=== PATIENT | male | born 1945 | race Caucasian/White ===

== ENCOUNTER → 2017-04-28 | Outpatient (CLI) | payer BC ==
[~2017-04-28] MED LIST: PRDFOPS OTL
--- NOTE | 2017-04-28 11:45 | DIAGNOSTIC IMAGING REPORT ---
CHEST 2 VIEWS ROUTINE HISTORY: 71 years-old Male J45.909 Acute asthmatic [id number] acute cough for one month. COMPARISON: Chest radiograph 12/06/2014 TECHNIQUE: Frontal and lateral views of the chest FINDINGS: Cardiac silhouette is within normal limits. No pneumothorax or large pleural effusion. Chronic blunting of the costophrenic angles redemonstrated with linear subsegmental left basilar opacity suggesting atelectasis and/or scarring. Significant sigmoidal scoliosis of the thoracolumbar spine redemonstrated. The bones appear grossly intact. IMPRESSION: 1. Subsegmental left basilar atelectasis and/or scarring without acute cardiopulmonary process. 2. Thoracolumbar sigmoidal scoliosis. The above report was generated using voice recognition software. It may contain grammatical, syntax or spelling errors. Electronically signed by: Harshad Rg M.D. 04/28/2017 11:44 AM Dictated Date/Time: 04/28/2017 11:42 AM
== END | disposition home or self-care (01) ==
LOC: C.RAD1850 11:34
PROVIDERS: ATTEND Physician Assistant Medical
DX: J45.909 Unspecified asthma, uncomplicated (principal); M41.85 Other forms of scoliosis, thoracolumbar region

== ENCOUNTER → 2017-06-28 | Outpatient (CLI) | payer BC ==
--- NOTE | 2017-06-28 12:43 | DIAGNOSTIC IMAGING REPORT ---
ABDOMEN LIMITED (US) HISTORY: 71 years-old Male ELEVATED LIVER ENZYMES elevated liver function tests COMPARISON: None available TECHNIQUE: Multiple real-time sonographic images of the abdominal right upper quadrant were obtained assessing grayscale appearance and color flow FINDINGS: Pancreas is obscured by bowel gas. There is increased echogenicity of the hepatic parenchyma measuring up to 14 cm in length. No intrahepatic biliary ductal dilation identified. Circumscribed hypoechoic 1.2 cm lesion of the right hepatic lobe suggests cyst. No suspicious mass lesions of the liver identified. The right kidney measures 11.0 cm in length and demonstrates no hydronephrosis. Nonobstructing calculus of the superior pole measures 2 mm. Gallbladder is unremarkable without shadowing cholelithiasis, gallbladder wall thickening or pericholecystic fluid collections. The common bile duct is normal, 0.5 cm. IMPRESSION: 1. No sonographic evidence of cholelithiasis or acute cholecystitis. 2. Mildly increased echogenicity of the liver suggests fatty infiltration. 3. No biliary ductal dilation. 4. Nonobstructing 2 mm calculus of the superior pole right kidney. The above report was generated using voice recognition software. It may contain grammatical, syntax or spelling errors. Electronically signed by: Harshad Rg M.D. 06/28/2017 12:42 PM Dictated Date/Time: 06/28/2017 12:39 PM
== END | disposition home or self-care (01) ==
LOC: C.ULTR 11:56
PROVIDERS: ATTEND Internal Medicine
DX: R79.89 Other specified abnormal findings of blood chemistry (principal); N20.0 Calculus of kidney

== ENCOUNTER → 2017-07-01 | Outpatient (CLI) | payer BC ==
--- NOTE | 2017-07-01 14:26 | DIAGNOSTIC IMAGING REPORT ---
(CHEST) THORAX WITHOUT CT DOSE: 327.69 mGy.cm CLINICAL HISTORY: 71 years-old Male with R05 [id number]. Acute cough TECHNIQUE: Multiaxial CT images of the chest were performed without contrast. A dose lowering technique was utilized adhering to the principles of ALARA. COMPARISON: Chest radiograph 04/28/2017. FINDINGS: 4 mm calcification of the inferior right thyroid lobe. There is no pathologic adenopathy about the chest identified. Heart is normal in size without pericardial effusion. Coronary arterial calcifications are noted. There is moderate atherosclerotic plaquing of the aorta with descending thoracic aortic tortuosity. No aneurysm identified. There are calcifications of the tracheobronchial tree. The lungs are hyperinflated with mild centrilobular emphysematous changes the lung apices. Mild paraseptal emphysematous changes also noted. There is no pneumothorax or pleural effusion. Mild bronchial wall thickening of the lung bases suggest bronchitis. Minimal tree-in-bud nodularity is also present within left lower lobe. Linear subsegmental pleural based opacities of the left greater than right lung bases suggest areas of atelectasis/scarring. Trace left pleural effusion is noted. 8 mm low attenuating lesion of the posterior right hepatic lobe suggests cyst as seen on image 54 series 2. Additionally, there is a 1.0 x 0.9 cm low attenuating lesion of the posterior right hepatic lobe on the same image which is indeterminate. No acute abnormality of the upper abdomen identified. Nonobstructing 6 mm calculus of the superior pole right kidney. There is asymmetric moderate atrophy of the left subscapularis musculature as seen on image 35 series 4. Bones are mildly demineralized. Sigmoid [lumbar scoliosis again seen. Multilevel endplate degenerative changes. IMPRESSION: 1. Hyperinflation with mild centrilobular and paraseptal emphysema. 2. Mild bilateral bronchial wall thickening suggests bronchitis. Groundglass and tree-in-bud nodularity of the left lower lobe likely reflects bronchiolitis/pneumonitis with trace left pleural effusion. Subsegmental atelectasis/scarring also noted within the left lung base. 3. Ill-defined low attenuating 1.0 cm lesion of the right hepatic lobe is nonspecific. Probable 8 mm hepatic cyst. 4. Nonobstructing 6 mm calculus of the superior pole right kidney. 5. Moderate atrophy of the left subscapularis musculature suggests chronic rotator cuff disease. Electronically signed by: Harshad Rg M.D. 07/01/2017 2:24 PM Dictated Date/Time: 07/01/2017 2:14 PM
== END | disposition home or self-care (01) ==
LOC: C.CTS 14:01
PROVIDERS: ATTEND Internal Medicine
DX: J43.2 Centrilobular emphysema (principal); J43.8 Other emphysema; R91.8 Other nonspecific abnormal finding of lung field; J90 Pleural effusion, not elsewhere classified; J98.11 Atelectasis; K76.9 Liver disease, unspecified; N20.0 Calculus of kidney; R93.7 Abnormal findings on diagnostic imaging of other parts of musculoskeletal system

== ENCOUNTER → 2017-08-13 | Outpatient (CLI) | payer BC ==
--- NOTE | 2017-08-13 09:00 | DIAGNOSTIC IMAGING REPORT ---
(CHEST) THORAX WITHOUT CLINICAL HISTORY: 72 years-old Male presenting with R05 [id number] Abnormal finding on imagingfollo. TECHNIQUE: Multidetector CT imaging of the chest was performed without the use of intravenous contrast. IV contrast: None. A dose lowering technique was used consistent with the principles of ALARA (as low as reasonably achievable). COMPARISON: 07/01/2017. CT DOSE (mGy.cm): The estimated cumulative dose is 289.65 mGycm. FINDINGS: [place] [employer] topogram: Hyperinflation. On soft tissue windows, calcification noted in the right lobe of the thyroid. There is No axillary, supraclavicular, or mediastinal lymphadenopathy. Evaluation of the cierra limited without intravenous contrast. Atherosclerosis of the aorta. Coronary artery calcification. Normal heart size. No pericardial or pleural effusion. Well-defined subcentimeter hypodensity medially in the right hepatic lobe likely hepatic cyst. Additional more ill-defined 1 cm lesion laterally in the right hepatic lobe (series 4 image 279), indeterminate. Nonobstructing right upper pole renal calculus. On lung windows, architectural distortion of the right lower lobe secondary to scoliotic curvature of the spine. Few bandlike opacities at the lung bases likely atelectasis or scarring. Mild bronchial wall thickening noted diffusely. Minimal subpleural reticulation in the lateral basal right lower lobe may be postinfectious/postinflammatory. Trace paraseptal emphysema in the azygos esophageal recess. No new infiltrate. Airways patent. On bone windows, degenerative changes and scoliotic curvature of the spine. Again demonstrated is mild atrophy of the left subscapularis muscle asymmetric to the right suggesting chronic injury. Exaggerated thoracic kyphosis. Anterior wedging deformities of T7 and T8 with partial osseous fusion indicating chronic change. Osteopenia. IMPRESSION: 1. No acute intrathoracic pathology. 2. Mild bronchial wall thickening could suggest chronic bronchitis. 3. Osteopenia with chronic compression deformities of T7 and T8. Electronically signed by: Kilo Liz M.D. 08/13/2017 8:59 AM Dictated Date/Time: 08/13/2017 8:49 AM
== END | disposition home or self-care (01) ==
LOC: C.CTS 08:34
PROVIDERS: ATTEND Internal Medicine
DX: J18.9 Pneumonia, unspecified organism (principal); R05 Cough; R93.8 Abnormal findings on diagnostic imaging of other specified body structures; M85.88 Other specified disorders of bone density and structure, other site

== ENCOUNTER → 2018-03-21 | Outpatient (CLI) | payer BC ==
[~2018-03-21] MED LIST changes: +ALBU18002 PO; +LOSA50TA54 PO; -PRDFOPS OTL
[2018-03-21 17:02] LABS: BLOOD UREA NITROGEN 16 mg/dl (7-18); CALCIUM 8.7 mg/dl (8.5-10.1); CARBON DIOXIDE 31 mmol/L (21-32); CREATININE 1.21 mg/dl (0.60-1.40); GLUCOSE 99 mg/dl (70-99); POTASSIUM 4.3 mmol/L (3.5-5.1); SODIUM 135 mmol/L (136-145)
== END | disposition home or self-care (01) ==
LOC: C.LAB 15:12
PROVIDERS: ATTEND Physician Assistant Medical
DX: I10 Essential (primary) hypertension (principal)

== ENCOUNTER 2018-04-14 17:02 | Emergency (ER) | payer BC ==
[~2018-04-14] VITALS: Ht 172.7 cm; Wt 74.2 kg
[2018-04-14 17:06] VITALS: TEMP 37.1; Ht 172.7 cm; Wt 74.2 kg
[2018-04-14 18:04] LABS: BASO % 0.3 %; BASO ABS # 0.02 K/uL (0-0.2); EOS % 1.2 %; EOS ABS # 0.09 K/uL (0-0.5); HEMATOCRIT 39.4 % (42-52); HEMOGLOBIN 13.6 g/dL (14.0-18.0); IG# 0.02 K/uL (0.00-0.02); LYMPH % 30.6 %; LYMPH ABS # 2.23 K/uL (1.2-3.4); MEAN CELL VOLUME 97.3 fL (80-100); MEAN CORPUSCULAR HEMOGLOBIN 33.6 pg (25-34); MEAN CORPUSCULAR HGB CONC 34.5 g/dl (32-36); MONO % 9.8 %; MONO ABS # 0.71 K/uL (0.11-0.59); NEUT % 57.8 %; NEUT ABS # 4.21 K/uL (1.4-6.5); PLATELET COUNT 187 K/uL (130-400); RED CELL DISTRIBUTION WIDTH CV 12.9 % (11.5-14.5); WHITE BLOOD COUNT 7.28 K/uL (4.8-10.8)
[2018-04-14 18:18] LABS: CALCIUM 8.3 mg/dl (8.5-10.1); CREATININE 0.89 mg/dl (0.60-1.40); POTASSIUM 3.8 mmol/L (3.5-5.1)
--- NOTE | 2018-04-14 19:10 | DIAGNOSTIC IMAGING REPORT ---
ULTRASOUND L VENOUS DOPP LOWER EXT UNILAT CLINICAL HISTORY: Left leg swelling COMPARISON STUDY: No previous studies for comparison. FINDINGS: Real-time and color flow Doppler imaging were performed. Flow was seen within the femoral, popliteal and calf veins with no intraluminal thrombus demonstrated. The saphenous vein is patent. Note is made of prominent left inguinal lymph nodes, the largest of which measures 38 x 7 x 18 mm. IMPRESSION: 1. No evidence of left lower extremity DVT 2. Nonspecific prominent left inguinal lymph nodes Electronically signed by: Johan Guzmán M.D. 04/14/2018 7:09 PM Dictated Date/Time: 04/14/2018 7:08 PM
[2018-04-14] MEDS ORDERED: DOXY100C76 PO (19:27)
[2018-04-14 19:50] VITALS: BP 152/76; PULSE 72; O2SAT 98
--- NOTE | 2018-04-14 21:03 | EMERGENCY ROOM VISIT NOTE ---
History Report prepared by Debra: Aspen Morales Under the Supervision of: Dr. Josh Love M.D. First contact with patient: 17:15 Chief Complaint: REFERRED BY DOCTOR Stated Complaint: DOC YINKA REFERRED;FEVER History of Present Illness The patient is a 72 year old male who presents to the Emergency Room with complaints of worsening swelling of his left leg starting 2 days ago. The patient states that his leg is slightly red. He states that he went to his PCP and was sent here. The patient complains of chills and feeling warm. He notes that he did not check his temperature, but believes that he has fever. The patient denies leg pain, chest pain, shortness of breath, recent falls, any recent bites, and a history of diabetes. He notes that he does live in an area with possible tick exposure, but denies finding any ticks on him recently. Source of History: patient Onset: 2 days ago Position: leg (left) Quality: other (swelling, redness) Timing: worsening Associated Symptoms: + chills, No chest pain, No SOB Note: The patient complains of feeling warm. The patient denies leg pain, recent falls , any recent bites, and a history of diabetes. Review of Systems See HPI for pertinent positives and negatives. A total of ten systems were reviewed and were otherwise negative. Past Medical & Surgical Medical Problems: (1) HTN (hypertension) Family History Heart disease Social History Smoking Status: Former Smoker Smokeless Tobacco Use: No Alcohol Use: occasionally Marital Status: single Housing Status: lives alone Occupation Status: employed Current/Historical Medications Scheduled Doxycycline Monohydrate (Monodox), 100 MG PO BID Losartan Potassium (Cozaar), 50 MG PO DAILY Scheduled PRN Albuterol Sulfate (Proair Respiclick), 2 PUFF PO Q6 PRN for SOB/Wheezing Allergies Coded Allergies: No Known Allergies (Unverified , 03/08/18) Physical Exam Vital Signs Date Time Temp Pulse Resp B/P (MAP) Pulse Ox O2 Delivery O2 Flow Rate FiO2 04/14/18 19:50 72 16 152/76 98 Room Air 04/14/18 18:23 88 16 166/98 98 Room Air 04/14/18 17:06 37.1 79 20 179/98 97 Room Air Physical Exam Physical Exam GENERAL: He is oriented to person, place, and time. He appears well-developed and well-nourished. He does not appear distressed. HENT: Exam performed. Head: Normocephalic and atraumatic. Right Ear: External ear normal. No mastoid tenderness. Left Ear: External ear normal. No mastoid tenderness. Mouth/Throat: The oropharynx is clear and moist. No trismus in the jaw. No dental abscesses or uvula swelling. No oropharyngeal exudate or tonsillar abscesses. EYES: Conjunctivae and EOM are normal. Pupils are equal, round, and reactive to light. Right eye exhibits no discharge. Left eye exhibits no discharge. No scleral icterus. NECK: Normal range of motion. Neck supple. No JVD present. No spinous process tenderness present. No carotid bruit present. No rigidity. No tracheal deviation and normal range of motion present. No Brudzinski's sign and no Kernig 's sign noted. CV: Normal rate, regular rhythm, normal heart sounds and intact distal pulses. There is no peripheral edema. Palpable radial pulses bue. PULM/CHEST: Effort normal and breath sounds normal. No respiratory distress. No stridor. He has no wheezes. He has no rales. Chest Wall: He exhibits no tenderness. ABD: The abdomen is soft. Bowel sounds are normal. He has no distension. No mass is present. There is no tenderness. There is no rebound, no guarding, no Vogel's sign and no tenderness at McBurney's point. Rovsig negative. MUSC/SKEL: Normal range of motion. There is no peripheral edema, tenderness or deformity. LYMPH: No cervical adenopathy. NEURO: He is alert and oriented to person, place, and time. He has normal strength. No cranial nerve deficit or sensory deficit. Coordination and gait normal. GCS eye subscore is 4. GCS verbal subscore is 5. GCS motor subscore is 6. Cerebellar tests wnl. SKIN: Skin is warm and dry. He is not diaphoretic. Mild erythema to the left lower calf. Not circumferential. No vesicles. No fluctuance or obvious abscess. No discharge or bleeding. Negative Nikolsky. Palpable DP and PD pulses in bilateral lower extremities. PSYCH: He has a normal mood and affect. Behavior is normal. Judgment and thought content normal. Medical Decision & Procedures ER Provider Diagnostic Interpretation: Radiology results as stated below per my review and radiologist interpretation: ULTRASOUND L VENOUS DOPP LOWER EXT UNILAT CLINICAL HISTORY: Left leg swelling COMPARISON STUDY: No previous studies for comparison. FINDINGS: Real-time and color flow Doppler imaging were performed. Flow was seen within the femoral, popliteal and calf veins with no intraluminal thrombus demonstrated. The saphenous vein is patent. Note is made of prominent left inguinal lymph nodes, the largest of which measures 38 x 7 x 18 mm. IMPRESSION: 1. No evidence of left lower extremity DVT 2. Nonspecific prominent left inguinal lymph nodes Electronically signed by: Johan Guzmán M.D. 04/14/2018 7:09 PM Dictated Date/Time: 04/14/2018 7:08 PM Laboratory Results 04/14/18 17:40 Red Blood Count 4.05, Mean Corpuscular Volume 97.3, Mean Corpuscular Hemoglobin 33.6, Mean Corpuscular Hemoglobin Concent 34.5, Mean Platelet Volume 9.0, Neutrophils (%) (Auto) 57.8, Lymphocytes (%) (Auto) 30.6, Monocytes (%) (Auto) 9.8, Eosinophils (%) (Auto) 1.2, Basophils (%) (Auto) 0.3, Neutrophils # (Auto) 4.21, Lymphocytes # (Auto) 2.23, Monocytes # (Auto) 0.71, Eosinophils # (Auto) 0.09, Basophils # (Auto) 0.02 04/14/18 17:40 Test 04/14/18 17:40 White Blood Count 7.28 K/uL (4.8-10.8) Red Blood Count 4.05 M/uL (4.7-6.1) Hemoglobin 13.6 g/dL (14.0-18.0) Hematocrit 39.4 % (42-52) Mean Corpuscular Volume 97.3 fL (80-100) Mean Corpuscular Hemoglobin 33.6 pg (25-34) Mean Corpuscular Hemoglobin Concent 34.5 g/dl (32-36) Platelet Count 187 K/uL (130-400) Mean Platelet Volume 9.0 fL (7.4-10.4) Neutrophils (%) (Auto) 57.8 % Lymphocytes (%) (Auto) 30.6 % Monocytes (%) (Auto) 9.8 % Eosinophils (%) (Auto) 1.2 % Basophils (%) (Auto) 0.3 % Neutrophils # (Auto) 4.21 K/uL (1.4-6.5) Lymphocytes # (Auto) 2.23 K/uL (1.2-3.4) Monocytes # (Auto) 0.71 K/uL (0.11-0.59) Eosinophils # (Auto) 0.09 K/uL (0-0.5) Basophils # (Auto) 0.02 K/uL (0-0.2) RDW Standard Deviation 46.0 fL (36.4-46.3) RDW Coefficient of Variation 12.9 % (11.5-14.5) Immature Granulocyte % (Auto) 0.3 % Immature Granulocyte # (Auto) 0.02 K/uL (0.00-0.02) Anion Gap 10.0 mmol/L (3-11) Est Creatinine Clear Calc Drug Dose 72.6 ml/min Estimated GFR () 99.0 Estimated GFR (Non- 85.4 BUN/Creatinine Ratio 15.7 (10-20) Lactic Acid Level 1.1 mmol/L (0.4-2.0) Calcium Level 8.3 mg/dl (8.5-10.1) Lyme Disease IgG Antibody NEG (NEG) Lyme Disease IgM Antibody NEG (NEG) Laboratory results reviewed by nm ED Course 1718: The patient was evaluated in room B3A. A complete history and physical exam was performed. 1927: Vital signs were stable. Labs and imaging were within normal limits. The patient will be discharged with antibiotics for cellulitis. DISCHARGE - Plan of care discussed with patient and questions answered. The patient was given both verbal and printed discharge instructions. The patient verbalized understanding and ability to comply. The patient is to seek outpatient follow up as noted in the discharge instructions. The patient verbalized understanding and ability to comply. The patient is discharged in stable condition. The patient was instructed to return for worsening symptoms. Medical Decision Vital signs were stable. Labs and imaging were within normal limits. The patient will be discharged with antibiotics for cellulitis. DISCHARGE - Plan of care discussed with patient and questions answered. The patient was given both verbal and printed discharge instructions. The patient verbalized understanding and ability to comply. The patient is to seek outpatient follow up as noted in the discharge instructions. The patient verbalized understanding and ability to comply. The patient is discharged in stable condition. The patient was instructed to return for worsening symptoms. Medication Reconcilliation Current Medication List: was personally reviewed by me Blood Pressure Screening Patient's blood pressure: Elevated blood pressure Blood pressure disposition: Elevated BP felt to be situational Impression Primary Impression: Cellulitis Scribe Attestation The scribe's documentation has been prepared under my direction and personally reviewed by me in its entirety. I confirm that the note above accurately reflects all work, treatment, procedures, and medical decision making performed by me. The chart was completed utilizing [employer] Speech voice recognition software. Grammatical errors, random word insertions, pronoun errors, and incomplete sentences are an occasional consequence of this system due to software limitations, ambient noise, and hardware issues. Any formal questions or concerns about the content, text, or information contained within the body of this dictation should be directly addressed to the physician for clarification. Departure Information Dispostion Home / Self-Care Prescriptions Doxycycline Monohydrate (Monodox) 100 Mg Cap 100 MG PO BID for 10 Days, #20 CAP Prov: Josh Love M.D. 04/14/18 Referrals Gucci Bey M.D. (PCP) Forms HOME CARE DOCUMENTATION FORM, IMPORTANT VISIT INFORMATION, WORK / SCHOOL INSTRUCTIONS Patient Instructions My [facility] Additional Instructions Return to the emergency department if the redness on her lower extremity increases or you develop fever greater 100.4. Also return to emergency department if you develop drainage from your rash. Problem Qualifiers Primary Impression: Cellulitis Site of cellulitis: extremity Site of cellulitis of extremity: lower extremity Laterality: unspecified laterality Qualified Codes: L03.119 - Cellulitis of unspecified part of limb
== END 2018-04-14 20:06 | disposition home or self-care (01) ==
LOC: C.EDB 17:05
DX: L03.116 Cellulitis of left lower limb (principal); I10 Essential (primary) hypertension; Z87.891 Personal history of nicotine dependence; Z79.899 Other long term (current) drug therapy

== ENCOUNTER 2025-03-19 16:49 | Inpatient (IN) ==
--- NOTE | 2025-03-19 17:03 | Emergency Department Note ---
Impression & Plan Syncope, Allergic reaction, Hypoxia ED Provider Note NAME: ARSALAN LINDSAY AGE: 79 SEX: M : 1945 ARRIVES VIA: Ambulance INFORMANT: Patient, ED PROVIDER(S): Jeramie Judd DO CHIEF COMPLAINT: Syncope HPI: The patient is a 79-year-old male who presented to the emergency department by ambulance after a syncopal episode. The patient states he was doing yard work outside. He was riding on his riding mower. Patient got close to his neighbors yard who has honeybees. He started to become attacked by the honeybee. He was stung approximately 12 times. He got back to his riding mower and states he started having blurring of his vision and feeling as though he was going to pass out. The neighbors called 911 as a saw the patient passed out. His riding tractor did stop once it struck a structure but it was not very fast and patient was not hurt. 911 arrived and the patient was brought to the emergency department. He did receive a DuoNeb treatment as well as Solu-Medrol. The patient denies having any chest pain or difficulty breathing at this time. He denies having any nausea or vomiting. He denies having any headache or chest pain. ROS: See above HPI for pertinent positives & negatives. A total of 10 systems reviewed and were otherwise negative. PAST MEDICAL HISTORY: See Below PAST SURGICAL HISTORY: See Below FAMILY HISTORY: See Below SOCIAL HISTORY: See Below HOME MEDICATIONS: See Below ALLERGIES: See Below VITALS: See Below PHYSICAL EXAMINATION: GENERAL: Patient is awake alert in no acute distress patient is resting comfortably and showing no signs of anxiety EYES: The conjunctivae are clear. The pupils are round and reactive. EARS, NOSE, MOUTH AND THROAT: The nose is without any evidence of any deformity. NECK: The neck is nontender and supple. RESPIRATORY: Scattered wheezing was noted throughout. There is no tachypnea or conversational dyspnea. CARDIOVASCULAR: Regular rate and rhythm noted there no murmurs rubs or gallops normal S1 normal S2. GASTROINTESTINAL: The abdomen is soft. Abdomen is nontender. MUSCULOSKELETAL/EXTREMITIES: There is no evidence of gross deformity full range of motion is noted in the hips and shoulders. SKIN: Multiple bee stings sacs were noted on the forehead on the scalp as well as above the left eye. They were removed using tape. NEUROLOGIC: Patient is awake alert and oriented x3 strength is symmetric patellar reflexes are 2+ bilaterally MEDICAL DECISION MAKING: The patient is a 79-year-old male who presented to the emergency department for an evaluation after having a syncopal episode. The patient was stung by multiple bees and then had a syncopal episode. He was noted to have wheezing prior to arrival. He was treated with steroids as well as bronchodilators prior to arrival. He was treated with Benadryl in the emergency department as well as another bronchodilator nebulizer. He was reevaluated multiple times. The patient had very little complaints. He had no signs of overt anaphylaxis but continued to have hypoxia. For this reason I discussed his condition with the on-call [facility] hospitalist. They have agreed to evaluate the patient in the emergency department. Triage Nursing notes reviewed. Prior medical records reviewed Vital Signs: reviewed and remarkable for no significant abnormalities Differential diagnosis: Vasovagal event, dehydration, infection, hypoglycemia, electrolyte abnormalities, cardiac sources, intracerebral event, pulmonary embolism, seizure, toxicologic, neurologic, as well as other pathologies. ER treatment provided: See below Diagnostics interpreted by me: ECG: EKG was obtained in the emergency department. Interpretation is sinus rhythm at 118 bpm. No PVCs were noted. Nonspecific abnormalities were noted in the high lateral leads. This was compared to a tracing from September 06, 1994. Changes have occurred which are likely age-related. Cardiac Monitoring: An order was placed for continuous cardiac monitoring. The monitor shows a rate of 100 bpm with sinus rhythm. Laboratory studies: As stated above and show below. Imaging studies: See below. Radiographic imaging was reviewed by myself Consultation(s): I discussed this case with Dr. Chowdary who is on-call for the [facility] hospitalist group. Past Med/Surg History Problem List (Updated 03/19/25 @ 21:36 by Jo Paul PA-C) Elevated troponin Hypoxia (Acute) Allergic reaction (Acute) Syncope (Acute) Elevated PSA, between 10 and less than 20 ng/ml COPD (chronic obstructive pulmonary disease) Osteoporosis Decreased bone mass Former heavy tobacco smoker HTN (hypertension) Abdominal pain Impaired fasting glucose Bronchitis Encounter for health maintenance examination in adult S/P cataract extraction Rheumatic heart disease Hyperlipidemia Bilateral inguinal hernia Anemia Medical History Screening for colon cancer Rheumatic fever Intestinal adhesions with obstruction Surgical History S/P inguinal hernia repair Family History Mother Stroke Brother Stroke Denies family history of Sudden Ovarian cancer Prostate cancer Myocardial infarction Breast cancer Colorectal cancer Social History Smoking Status: Former smoker Tobacco Type: Cigarettes Age Started Using Tobacco: 14; Age Quit Using Tobacco: 62; packs per day: 0.5; Second Hand Exposure: No; Do You Dip or Chew Tobacco: No; Hx Alcohol Use: Yes Alcohol type: beer and wine Alcohol Intake Frequency: 4 or More x per/Week Alcohol Intake Frequency Comment: approx 3-4 drinks per day Hx Substance Use: No Preferred Language: [place] Visual Impairment: No Limitations Hearing Ability: Normal Beliefs That Will Affect Care: None marital status: Current Living Situation: Spouse current occupational status: retired 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 200 mcg-umeclid 1 inh inhalation Q24H #60 ea 11/02/24 62.5 mcg-vilant 25 mcg inhalat.powder (Trelegy Ellipta) alendronate 70 mg tablet (Fosamax) 70 mg PO .q7day 28 days #12 tabs 12/26/24 losartan 50 mg tablet 50 mg PO DAILY #90 tabs 01/16/25 Results & Data (ED) Vital Signs Vital Signs - 24 hr 03/19/25 17:06 03/19/25 17:06 03/19/25 17:06 Temperature 36.8 C Temperature Source Oral Pulse Rate 117 H Pulse Rate [Apical] 117 H Pulse Rate from SpO2 Sensor Respiratory Rate 23 23 Blood Pressure Blood Pressure [Right Arm] 104/73 Blood Pressure Mean Blood Pressure Mean [Right Arm] 83 Pulse Oximetry 87 L 95 95 Oxygen Delivery Method Room Air Nasal Cannula Nasal Cannula Oxygen Flow Rate 0 2 2 Sepsis Recent Fever Within 48 Hours Sepsis New/Unexplained Change in Mental Status Sepsis Action Taken by Nursing Oxygen Flow Rate - Titration 2 Pulse Oximetry Post Tiitration 95 03/19/25 17:10 03/19/25 17:10 03/19/25 17:12 Temperature 36.8 C Temperature Source Oral Pulse Rate 117 H 118 H Pulse Rate [Apical] Pulse Rate from SpO2 Sensor Respiratory Rate 23 Blood Pressure 104/73 Blood Pressure [Right Arm] Blood Pressure Mean 83 Blood Pressure Mean [Right Arm] Pulse Oximetry 95 Oxygen Delivery Method Nasal Cannula Nasal Cannula Oxygen Flow Rate 2 2 Sepsis Recent Fever Within 48 Hours No Sepsis New/Unexplained Change in Mental Status N/A Sepsis Action Taken by Nursing Physician Notified Oxygen Flow Rate - Titration Pulse Oximetry Post Tiitration 03/19/25 21:04 03/19/25 21:09 Temperature Temperature Source Pulse Rate 91 H 100 H Pulse Rate [Apical] Pulse Rate from SpO2 Sensor 99 H Respiratory Rate 21 Blood Pressure 117/77 Blood Pressure [Right Arm] Blood Pressure Mean 90 Blood Pressure Mean [Right Arm] Pulse Oximetry 92 Oxygen Delivery Method Room Air Oxygen Flow Rate Sepsis Recent Fever Within 48 Hours Sepsis New/Unexplained Change in Mental Status Sepsis Action Taken by Nursing Oxygen Flow Rate - Titration Pulse Oximetry Post Tiitration Home Medications Current Medication List: was personally reviewed by me Laboratory Data Attestation: I reviewed the patient's lab results. 03/19/25 17:08 03/19/25 17:08 Lab Results 03/19/25 03/19/25 03/19/25 Range/Units 17:08 18:52 21:08 WBC 11.49 H (4.8-10.8) K/ul RBC 4.38 L (4.70-6.10) M/uL Hgb 14.8 (14.0-18.0) g/dl Hct 42.6 (42.0-52.0) % MCV 97.3 (80.0-100.0) fL MCH 33.8 (25.0-34.0) pg MCHC 34.7 (32.0-36.0) g/dL RDW Std Deviation 42.5 (36.4-46.3) fL RDW Coeff of Ana Luisa 11.9 (11.5-14.5) % Plt Count 244 (130-400) K/uL MPV 8.5 L (9.4-12.4) fL Immature Gran % (Auto) 0.3 % Neut % (Auto) 71.8 % Lymph % (Auto) 22.3 % Stevens % (Auto) 5.3 % Eos % (Auto) 0.2 % Baso % (Auto) 0.1 % Neut # (Auto) 8.26 H (1.40-6.50) K/uL Lymph # (Auto) 2.56 (1.20-3.40) K/uL Stevens # (Auto) 0.61 H (0.11-0.59) K/uL Eos # (Auto) 0.02 (0.00-0.50) K/uL Baso # (Auto) 0.01 (0.00-0.20) K/uL Immature Gran # (Auto) 0.03 (0.01-0.20) K/uL Sodium 138 (136-145) mmol/L Potassium 4.2 (3.5-5.1) mmol/L Chloride 101 (98-107) mmol/L Carbon Dioxide 25 (21-32) mmol/L Anion Gap 12 H (3-11) BUN 20 (6-23) mg/dl Creatinine 1.35 (0.6-1.4) mg/dl Est Cr Clr Drug Dosing 45.8 ml/min eGFR 53.41 BUN/Creatinine Ratio 14.8 (10-20) Glucose 229 H (70-99(Fasting)) mg/dl POC Glucose 149 H (70-99) mg/dl Calcium 10.0 (8.6-10.3) mg/dl Magnesium 2.0 (1.7-2.4) mg/dl Total Bilirubin 1.0 (0.2-1.0) mg/dl AST 33 (13-39) U/L ALT 20 (7-52) U/L Alkaline Phosphatase 79 (34-104) U/L Troponin I High Sens 21.3 H 26.8 H (0-20) pg/ml Total Protein 7.4 (6.0-8.3) gm/dl Albumin 3.8 (3.4-5.0) gm/dl Globulin 3.6 (2.5-4.0) gm/dl Albumin/Globulin Ratio 1.1 (0.9-2) Administered Medications Discontinued Medications Albuterol (Albut/Ipratrop 3mg/0.5mg Neb 3 Ml Vial) 3 ml NEB NOW STA; Protocol Stop: 03/19/25 17:02 Last Admin: 03/19/25 17:21 Dose: 3 ml Documented By: MAIKEL Diphenhydramine HCl (Diphenhydramine 50 Mg/Ml Vial) 25 mg IV NOW STA Stop: 03/19/25 17:02 Last Admin: 03/19/25 17:23 Dose: 25 mg Documented By: MAIKEL Sodium Chloride (Nss) 500 mls @ 999 mls/hr IV .Q31M ONE Stop: 03/19/25 17:31 Last Infusion: 03/19/25 18:28 Dose: Infused Documented By: Admin: 03/19/25 17:23 Dose: 999 mls/hr Documented By: MAIKEL Imaging Data Attestation: I personally reviewed and interpreted this imaging study as follows: My Impression: 1 view chest x-ray was obtained in the emergency department. My interpretation is no free air or definite infiltrate, final report below. Radiologist's Impression: Chest X-Ray 03/19/25 17:01 EXAM: XR chest 1V portable CLINICAL HISTORY: Syncope TECHNIQUE: An X-ray image of the chest is obtained in AP projection. COMPARISON: Compared to the previous study dated 12/28/2022 and 02/18/2021 FINDINGS: Pulmonary Parenchyma: Right para hilar opacity, possibly positional due to scoliotic deformity. Still noted right parahilar and left basal atelactasis/scar No pulmonary nodules are identified. blunting of the right costophrenic angle Heart and Mediastinum: Heart size and shape are normal. No mediastinal widening or masses. No hilar or mediastinal lymphadenopathy. Tortuous aorta Bony Thorax: Bony thorax appears intact without fractures or deformities. Soft Tissues: Soft tissues overlying the chest wall are unremarkable. IMPRESSION: 1. No acute cardiopulmonary abnormalities are identified, stable 2. Right para hilar opacity, possibly positional due to scoliotic deformity. stable 3. Still noted right parahilar and left basal atelactasis/scar, stable Electronically signed by Ger Koroma 03-19-2025 6:23 PM Discharge Plan Visit Data Chief Complaint: Allergic Reaction Stated Complaint: SYNCOPE ED Provider: Jeramie Judd Discharge Problem: Syncope, Allergic reaction, Hypoxia Patient Disposition: Being Evaluated by Hospitalist Condition: Fair Forms Stand Alone Forms: My [facility] Prescriptions Prescriptions: No Action amlodipine 5 mg tablet 5 mg PO DAILY Qty: 90 3RF Trelegy Ellipta 200-62.5-25 mcg blister with device 1 inh inhalation Q24H Qty: 60 3RF alendronate [Fosamax] 70 mg tablet 70 mg PO .q7day 28 Days Qty: 12 4RF Rx Instructions: Take 1 tablet, every 7 days with 8 oz plain water only. Wait 45 minutes before eating/drinking anything else. Take this med every Wednesday. losartan 50 mg tablet 50 mg PO DAILY Qty: 90 3RF Referrals Referrals: Zev Koroma DO [Primary Care Provider] -
[2025-03-19] MEDS: ALBUT/IPRATROP 3MG/0.5MG NEB 3 ML VIAL NEB STA (17:21)
[2025-03-19] MEDS: SODIUM CHLORIDE 0.9% 500 ML IV ONE (17:23)
[2025-03-19] MEDS: diphenhydrAMINE 50 MG/ML VIAL IV STA (17:23)
[2025-03-19 17:24] LABS: Hematocrit (blood only) 42.6 % (42.0-52.0); Hemoglobin 14.8 g/dl (14.0-18.0); Immature Granulocytes # (auto) 0.03 K/uL (0.01-0.20); Immature Granulocytes % (auto) 0.3 %; Mean Corpuscular Hemoglobin 33.8 pg (25.0-34.0); Mean Corpuscular Volume 97.3 fL (80.0-100.0); Platelet Count 244 K/uL (130-400); RDW Standard Deviation 42.5 fL (36.4-46.3); Red Blood Count 4.38 M/uL (4.70-6.10); White Blood Count 11.49 K/ul (4.8-10.8)
[2025-03-19 17:49] LABS: Alanine Aminotransferase 20.0 U/L (7-52); Albumin Globulin Ratio 1.1 (0.9-2); Alkaline Phosphatase 79.0 U/L (34-104); Anion Gap 12.0 (3-11); Bilirubin,Total 1.0 mg/dl (0.2-1.0); Blood Urea Nitrogen 20.0 mg/dl (6-23); Calcium 10.0 mg/dl (8.6-10.3); Carbon Dioxide 25.0 mmol/L (21-32); Chloride 101.0 mmol/L (98-107); Creatinine Clr Calc Pharmacy 45.8 ml/min; Globulin 3.6 gm/dl (2.5-4.0); Glucose 229.0 mg/dl (70-99(Fasting)); Magnesium 2.0 mg/dl (1.7-2.4); Potassium 4.2 mmol/L (3.5-5.1); Sodium 138.0 mmol/L (136-145); Total Protein 7.4 gm/dl (6.0-8.3)
--- NOTE | 2025-03-19 18:23 | XRay Report ---
EXAM: XR chest 1V portable CLINICAL HISTORY: Syncope TECHNIQUE: An X-ray image of the chest is obtained in AP projection. COMPARISON: Compared to the previous study dated 12/28/2022 and 02/18/2021 FINDINGS: Pulmonary Parenchyma: Right para hilar opacity, possibly positional due to scoliotic deformity. Still noted right parahilar and left basal atelactasis/scar No pulmonary nodules are identified. blunting of the right costophrenic angle Heart and Mediastinum: Heart size and shape are normal. No mediastinal widening or masses. No hilar or mediastinal lymphadenopathy. Tortuous aorta Bony Thorax: Bony thorax appears intact without fractures or deformities. Soft Tissues: Soft tissues overlying the chest wall are unremarkable. IMPRESSION: 1. No acute cardiopulmonary abnormalities are identified, stable 2. Right para hilar opacity, possibly positional due to scoliotic deformity. stable 3. Still noted right parahilar and left basal atelactasis/scar, stable Electronically signed by Ger Koroma 03-19-2025 6:23 PM
--- NOTE | 2025-03-19 21:17 | History & Physical Report ---
Date of Service March 19, 2025 Assessment & Plan (1) Elevated troponin: (2) Allergic reaction: (3) Hypoxia: (4) COPD (chronic obstructive pulmonary disease): Plan Patient is a 79-year-old male with past history of COPD, HTN, HLD, rheumatic heart disease. Patient presented after being found unresponsive by his neighbors while cutting the grass after several bee stings, denies history of previous anaphylaxis with bee stings. EMS noted patient to be hypoxic. In the ED patient had persistent hypoxia, tachycardia, and elevated troponin. He is being admitted for observation overnight to trend troponins. #elevated troponin - trop 21.3 -> 26.8, suspect elevated to demand ischemia with persistent tachycardia in the ED. Patient denies any chest pain and EKG without ischemic changes. Electrolytes stable. Original EKG with questionable A-fib/P waves, repeat showed normal sinus rhythm EKG with chest pain as needed Trend troponin every 6 hours - echo in AM Monitor on telemetry #allergic reaction/hypoxia/COPD - Anaphylaxis after several bee stings. Persistently hypoxic in ED despite 125 IV Solu-Medrol and 2 DuoNeb treatments. History of COPD, no oxygen at baseline. Mag 2.0. Oxygen as needed for O2 less than 90%, wean as tolerated Incentive spirometry DuoNebs 2 every 2 hours as needed; Patient does have at home for dc needs - Benadryl 25mg IV q4h prn With mild leukocytosis, WBC 11.49 at time of admission. Anticipate may remain elevated with high-dose Solu-Medrol. - trend cbc - continue home inhaler #hyperglycemia original glucose 229, down trended to 149. Suspect elevated secondary to Solu-Medrol use. - Repeat glucose with a.m. labs #HTN - continue losartan and amlodipine VTE ppx: SCDs, low risk and obs status Dispo: Med/tele, anticipate dc home 03/20 after troponin trend Admission and Anticipated Discharge Date Admission Date: 03/19/25 History of Present Illness Chief Complaint: allergic rxn Primary Care Provider: Zev Koroma, DO Patient is a 79-year-old male with past history of COPD, HTN, HLD, rheumatic heart disease. Patient presented after being found unresponsive by his neighbors while cutting the grass after several bee stings, denies history of previous anaphylaxis with bee stings. EMS noted patient to be hypoxic. In the ED patient had persistent hypoxia, tachycardia, and elevated troponin. He is being admitted for observation overnight to trend troponins. Patient seen at bedside with his present. He was cutting the grass today when he was found unresponsive. Patient denies any history of allergic reactions with bee stings. He stated he was feeling short of breath earlier with EMS however breathing is much improved. He does have COPD and has nebulizers at home as needed, no home oxygen. His oxygen was noted to be 84% with EMS, 87% in the ED, now titrated off oxygen. He was given 125 Mg IV Solu- Medrol, 2 DuoNeb treatments, and Benadryl 25 Mg IV. He was found to have an elevated troponin, he denies any chest pain. Original EKG with questionable A- fib, repeat showing normal sinus rhythm with distinguishable P waves. He denies any recent chest pain or increased dyspnea on exertion at baseline. He does frequently have dyspnea however of his baseline with COPD. He was a former s moker, quit approximately 12 to 13 years ago. 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 He got all of his home medications today. He wishes to be full code. Allergies Allergy/AdvReac Type Severity Reaction Status Date / Time No Known Allergies Allergy Verified 03/19/25 17:54 Home Medications Medication Instructions Recorded Confirmed Type amlodipine 5 mg tablet 5 mg PO DAILY #90 tabs 10/17/24 03/19/25 Rx fluticasone fur. 200 mcg-umeclid 1 inh inhalation Q24H #60 ea 11/02/24 03/19/25 Rx 62.5 mcg-vilant 25 mcg inhalat.powder (Trelegy Ellipta) alendronate 70 mg tablet (Fosamax) 70 mg PO .q7day 28 days #12 tabs 12/26/24 03/19/25 Rx losartan 50 mg tablet 50 mg PO DAILY #90 tabs 01/16/25 03/19/25 Rx Past Med/Surg History Problem List (Updated 03/19/25 @ 21:36 by Jo Paul PA-C) Elevated troponin Hypoxia (Acute) Allergic reaction (Acute) Syncope (Acute) Elevated PSA, between 10 and less than 20 ng/ml COPD (chronic obstructive pulmonary disease) Osteoporosis Decreased bone mass Former heavy tobacco smoker HTN (hypertension) Abdominal pain Impaired fasting glucose Bronchitis Encounter for health maintenance examination in adult S/P cataract extraction Rheumatic heart disease Hyperlipidemia Bilateral inguinal hernia Anemia Medical History Screening for colon cancer Rheumatic fever Intestinal adhesions with obstruction Surgical History S/P inguinal hernia repair Family History Mother Stroke Brother Stroke Denies family history of Sudden Ovarian cancer Prostate cancer Myocardial infarction Breast cancer Colorectal cancer Social History Smoking Status: Former smoker Tobacco Type: Cigarettes Age Started Using Tobacco: 14; Age Quit Using Tobacco: 62; packs per day: 0.5; Second Hand Exposure: No; Do You Dip or Chew Tobacco: No; Hx Alcohol Use: Yes Alcohol type: beer and wine Alcohol Intake Frequency: 4 or More x per/Week Alcohol Intake Frequency Comment: approx 3-4 drinks per day Hx Substance Use: No Preferred Language: [place] Visual Impairment: No Limitations Hearing Ability: Normal Beliefs That Will Affect Care: None marital status: Current Living Situation: Spouse current occupational status: retired 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 Non-toxic appearing. HEENT- EOMI, mucous membranes moist. Hearing grossly intact. Heart-normal S1 and S2. No murmurs, rubs or gallops. Lungs- wheezing bilaterally, no respiratory distress, no accessory muscle use. On room air. Abdomen-normal bowel sounds and soft. No ascites noted. Non-tender. Extremities- no clubbing, cyanosis, or edema. Rheumatologic-normal range of motion. Psychiatric-normal affect. Results & Data Results & Data Vital Signs (Past 12 Hours) Vital Signs Temp Pulse Pulse Resp BP BP Pulse Ox 03/19/25 21:09 100 H 21 117/77 92 03/19/25 21:04 91 H 03/19/25 17:12 118 H 03/19/25 17:10 03/19/25 17:10 36.8 C 117 H 23 104/73 95 03/19/25 17:06 36.8 C 117 H 23 104/73 95 03/19/25 17:06 117 H 23 95 03/19/25 17:06 87 L O2 Del Method O2 Flow Rate 03/19/25 21:09 Room Air 03/19/25 21:04 03/19/25 17:12 03/19/25 17:10 Nasal Cannula 2 03/19/25 17:10 Nasal Cannula 2 03/19/25 17:06 Nasal Cannula 2 03/19/25 17:06 Nasal Cannula 2 03/19/25 17:06 Room Air 0 Laboratory Results Reviewed CBC, CMP, magnesium, troponin Diagnostic Findings reviewed CXR ECG Additional Comments: normal sinus rhythm Rate 88 QTc 440 Code Status & VTE Plan Code Status full code VTE Prophylaxis Plan VTE Prophylaxis will be ordered: Yes Supervising Physician Co-Signing Physician Notes Attending addendum: I have physically seen this patient, have supervised the JENNY's activities, and agree with the H&P unless as otherwise noted. Assessment and Plan: The patient is a 79-year-old male past medical history including COPD, hypertension, hyperlipidemia, rheumatic heart disease. He was found unresponsive by neighbors after cutting grass, and received several bee stings from a nest that he likely ran over with his lawnmower. He has no history of previous anaphylaxis. EMS notes that he was hypoxic, tachycardic on their arri regina. In the emergency department has had an elevated troponin of 21.3 which increased to 26.8. He did receive Benadryl IV, DuoNeb treatment and normal saline 500 mL bolus from the ED. Elevated troponin- The patient will be admitted to telemetry for serial cardiac enzymes, serial EKG's, cardiac rhythm monitoring and a 2-D echocardiogram with Dopplers. Initial troponin 21.3 with follow-up 26.8, and will follow-up per protocol. This elevation is likely secondary to increased heart rate. Allergic reaction to bee sting/hypoxia/history of COPD - patient received Vsay-Fkvgsx-6 mg IV and 2 DuoNeb treatments en route via EMS. With the addition of Benadryl and additional DuoNeb in the ED, patient Had significant improvement and breathing and oxygenation prior to being transferred from the ED to medical telemetry Benadryl 25 mg IV every 4 hours as needed DuoNebs every 2 hours as needed Incentive spirometry Continue home inhalers Hyperglycemia- Initial glucose 229, troponin 149, likely secondary to IV Solu-Medrol Hypertension- Continue losartan and amlodipine with hold parameters PG Care Time/CCT Total # of Minutes Spent Total Time Spent with Patient: Total time spent is greater than 50% in coordination of care (as documented) at patient's floor/unit and/or counseling patient: Coding Level of Care Code 12969 INT INP/OBS CARE 3/75MIN Diagnoses Elevated troponin R79.89 Allergic reaction T78.40XA Hypoxia R09.02 COPD (chronic obstructive pulmonary disease) J44.9
[2025-03-19] MEDS ORDERED: DOCUSATE SODIUM 100 MG CAP PO PRN (22:45)
[2025-03-19] MEDS ORDERED: ONDANSETRON INJ 2 MG/ML 2 ML VIAL IV PRN (22:45)
[2025-03-19] MEDS ORDERED: ALBUT/IPRATROP 3MG/0.5MG NEB 3 ML VIAL NEB PRN (22:45)
[2025-03-19] MEDS ORDERED: ACETAMINOPHEN 325 MG TAB PO PRN (22:45)
[2025-03-19] MEDS ORDERED: MELATONIN 3 MG TAB PO PRN (22:45)
[2025-03-20] MEDS: diphenhydrAMINE 50 MG/ML VIAL IV PRN (00:44)
[2025-03-20 07:27] LABS: Hematocrit (blood only) 34.7 % (42.0-52.0); Hemoglobin 12.4 g/dl (14.0-18.0); Immature Granulocytes # (auto) 0.03 K/uL (0.01-0.20); Immature Granulocytes % (auto) 0.4 %; Mean Corpuscular Hemoglobin 34.8 pg (25.0-34.0); Mean Corpuscular Volume 97.5 fL (80.0-100.0); Platelet Count 176 K/uL (130-400); RDW Standard Deviation 41.9 fL (36.4-46.3); Red Blood Count 3.56 M/uL (4.70-6.10); White Blood Count 8.07 K/ul (4.8-10.8)
[2025-03-20 08:26] VITALS: RESP 18
[2025-03-20 08:47] LABS: Anion Gap 5.0 (3-11); Blood Urea Nitrogen 22.0 mg/dl (6-23); Calcium 8.7 mg/dl (8.6-10.3); Carbon Dioxide 27.0 mmol/L (21-32); Chloride 102.0 mmol/L (98-107); Creatinine Clr Calc Pharmacy 57.8 ml/min; Glucose 171.0 mg/dl (70-99(Fasting)); Magnesium 1.9 mg/dl (1.7-2.4); Potassium 4.7 mmol/L (3.5-5.1); Sodium 134.0 mmol/L (136-145)
[2025-03-20] MEDS ORDERED: NON-FORMULARY MEDICATION (Fluticasone-Umeclidin-Vilanter [Trelegy Ellipta] 200-62.5-25 mcg INH SCH (09:00)
[2025-03-20] MEDS: LOSARTAN POTASSIUM 50 MG TAB PO SCH (09:08)
[2025-03-20] MEDS: UMECLIDINIUM/VILANTEROL 62.5/25MCG 7 PUFFS/INHALER INH SCH (10:04)
[2025-03-20 11:32] VITALS: BP 122/68; TEMP 98.2; O2SAT 96
[2025-03-20] MEDS: FLUTICASONE FUROATE 200MCG 14 PUFFS/INHALER INH SCH (11:43)
[2025-03-20 12:07] VITALS: PULSE 70
--- NOTE | 2025-03-20 16:29 | XCELERA ---
[id number]
--- NOTE | 2025-03-20 17:33 | Discharge Summary ---
"Discharge Summary Date of Service March 20, 2025 Principal Dx & Hospital Course #1 = Principal Diagnosis (1) Elevated troponin: (2) Allergic reaction: (3) Hypoxia: (4) COPD (chronic obstructive pulmonary disease): (5) Unresponsive episode: Plan Patient is a 79-year-old male with past history of COPD, HTN, HLD, rheumatic heart disease. Patient presented after being found unresponsive by his neighbors while cutting the grass after several bee stings, denies history of previous anaphylaxis with bee stings. EMS noted patient to be hypoxic. In the ED patient had persistent hypoxia, tachycardia, and elevated troponin. He was being admitted for observation overnight. #Unresponsive episode | Allergic reaction | Hypoxia |COPD -suspect unresponsive episode was secondary to inflammatory response from multiple bee stings and acute dehydration in the setting of prolonged work outside in the heat. I do not suspect this was an anaphylactic reaction as he regained consciousness and improved without any administration of epi. Now stable on room air reports he had a viral respiratory infection about 2 weeks ago and has had a dry nagging cough since then. Prescribed prednisone 50 mg daily x 5 days on discharge #Elevated troponin - trop 21.3 -> 26.8 -> 15.1, suspect demand ischemia secondary to inflammatory response. Patient denies any chest pain and EKG wi thout ischemic changes. Electrolytes stable. Original EKG with questionable A-fib/P waves, repeat showed normal sinus rhythm Echocardiogram overall unremarkable with EF 55-60%, no regional wall motion abnormalities, no LVH, mild left atrial dilation, mild MR, normal estimated RVSP #Hyperglycemia original glucose 229, down trended to 149. Suspect elevated secondary to Solu-Medrol use in ED #HTN - continue losartan and amlodipine Dispo: Discharged home 03/20 Notes For Next Care Provider Medication Changes From Visit Prednisone 50 mg daily x 5 days Admission HPI Per Admitting Provider Patient is a 79-year-old male with past history of COPD, HTN, HLD, rheumatic heart disease. Patient presented after being found unresponsive by his neighbors while cutting the grass after several bee stings, denies history of previous anaphylaxis with bee stings. EMS noted patient to be hypoxic. In the ED patient had persistent hypoxia, tachycardia, and elevated troponin. He is being admitted for observation overnight to trend troponins. Patient seen at bedside with his present. He was cutting the grass today when he was found unresponsive. Patient denies any history of allergic reactions with bee stings. He stated he was feeling short of breath earlier with EMS however breathing is much improved. He does have COPD and has nebulizers at home as needed, no home oxygen. His oxygen was noted to be 84% with EMS, 87% in the ED, now titrated off oxygen. He was given 125 Mg IV Solu- Medrol, 2 DuoNeb treatments, and Benadryl 25 Mg IV. He was found to have an elevated troponin, he denies any chest pain. Original EKG with questionable A- fib, repeat showing normal sinus rhythm with distinguishable P waves. He denies any recent chest pain or increased dyspnea on exertion at baseline. He does frequently have dyspnea however of his baseline with COPD. He was a former smoker, quit approximately 12 to 13 years ago. 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 He got all of his home medications today. He wishes to be full code. Discharge Exam General: No acute distress, nondiaphoretic, well-developed, well-nourished. Skin: Warm, dry. No rashes or peripheral edema noted. Cardiac: Regular rate and rhythm without murmurs gallops or rubs. Pulm: Inspiratory wheeze noted bilaterally. Intermittent dry hacking cough. Normal respiratory effort. 96% on room air. Abdominal: Soft, nontender, nondistended. Bowel sounds present. Neuro: A&O x3. No focal neurological deficits. Discharge Plan Discharge Items Patient Disposition: Home - Self-Care Reason For Visit: ALLERGIC REACTION, ELEVATED TROPONIN, COPD Discharge Diagnosis: Allergic reaction, unresponsive episode Condition on Discharge: Fair Activity: Resume your previous activity Non-emergency contact: Primary Care Provider Call non-emergency contact if: you have any medication questions and your symptoms worsen Follow-up/Referrals: Zev Koroma DO [Primary Care Provider] - 03/29/25 11:00 am () Diet: Regular Addtl Attending Provider Instructions: Alex, You were admitted to the hospital after being found unresponsive by your neighbors and sustaining several bee stings. You were found to be hypoxic (low oxygen level) with EMS and again in the ED on arrival. This resolved after receiving medication. This may have been due to an allergic reaction from the bee stings, though anaphylaxis is much less likely as you improved without receiving epi. It was likely a mix of inflammatory response from numerous stings compounded with dehydration from working in the heat. You have improved with medication and supportive measures and are ready to be discharged home. You had an echocardiogram (ultrasound of your heart) and the report is still pending. As we discussed, I will contact you if the report shows anything emergent (but fortunately, I doubt it). Upon discharge from the hospital: * Take prednisone 50 mg daily x 5 days. This will help your wheezing. * Continue your home medications as prescribed. * Please follow-up with your PCP in 1-2 weeks. Please return to the hospital if you experience any of the following: Difficulty breathing, shortness of breath, chest pain, heart palpitations, passing out, unresponsive episode, confusion, or any other symptoms concerning for you. It was a pleasure taking care of you while you were in the hospital! Pending Studies at Discharge: Yes Studies:: echocardiogram Stand-Alone Forms: My [facility], Smoking Cessation Medications and DC Order Prescriptions: New prednisone 50 mg tablet 50 mg PO DAILY 5 Days Qty: 5 0RF Continued amlodipine 5 mg tablet 5 mg PO DAILY Qty: 90 3RF Trelegy Ellipta 200-62.5-25 mcg blister with device 1 inh inhalation Q24H Qty: 60 3RF alendronate [Fosamax] 70 mg tablet 70 mg PO .q7day 28 Days Qty: 12 4RF Rx Instructions: Take 1 tablet, every 7 days with 8 oz plain water only. Wait 45 minutes before eating/drinking anything else. Take this med every Wednesday. losartan 50 mg tablet 50 mg PO DAILY Qty: 90 3RF Discharge Orders: Discharge Order (Routine); Ordered 03/20/25 Ordered By: Tawanna Obando Admission Data Admit Date/Time: 03/19/25 21:21 Attending Provider: Deven Rivera Admit Provider: Manoj Augustine Primary Care Provider: Zev Koroma Other Providers: Manoj Augustine Other Interventions: Discharge Summary Assessment (RN) Last Done: 03/20/25 12:07 Hospital Stay Data Consultations 03/19/25 21:01 ED Decision to Admit Stat Diagnostic Imagining Performed Chest X-Ray 03/19/25 17:01 EXAM: XR chest 1V portable CLINICAL HISTORY: Syncope TECHNIQUE: An X-ray image of the chest is obtained in AP projection. COMPARISON: Compared to the previous study dated 12/28/2022 and 02/18/2021 FINDINGS: Pulmonary Parenchyma: Right para hilar opacity, possibly positional due to scoliotic deformity. Still noted right parahilar and left basal atelactasis/scar No pulmonary nodules are identified. blunting of the right costophrenic angle Heart and Mediastinum: Heart size and shape are normal. No mediastinal widening or masses. No hilar or mediastinal lymphadenopathy. Tortuous aorta Bony Thorax: Bony thorax appears intact without fractures or deformities. Soft Tissues: Soft tissues overlying the chest wall are unremarkable. IMPRESSION: 1. No acute cardiopulmonary abnormalities are identified, stable 2. Right para hilar opacity, possibly positional due to scoliotic deformity. stable 3. Still noted right parahilar and left basal atelactasis/scar, stable Electronically signed by Ger Koroma 03-19-2025 6:23 PM Pending Results Patient Have Any Pending Studies at Discharge: Yes Discharge Instructions Given to Patient (Per Discharging Provider) Alex, You were admitted to the hospital after being found unresponsive by your zaira bragg and sustaining several bee stings. You were found to be hypoxic (low oxygen level) with EMS and again in the ED on arrival. This resolved after receiving medication. This may have been due to an allergic reaction from the bee stings, though anaphylaxis is much less likely as you improved without receiving epi. It was likely a mix of inflammatory response from numerous stings compounded with dehydration from working in the heat. You have improved with medication and supportive measures and are ready to be discharged home. You had an echocardiogram (ultrasound of your heart) and the report is still pending. As we discussed, I will contact you if the report shows anything emergent (but fortunately, I doubt it). Upon discharge from the hospital: * Take prednisone 50 mg daily x 5 days. This will help your wheezing. * Continue your home medications as prescribed. * Please follow-up with your PCP in 1-2 weeks. Please return to the hospital if you experience any of the following: Difficulty breathing, shortness of breath, chest pain, heart palpitations, passing out, unresponsive episode, confusion, or any other symptoms concerning for you. It was a pleasure taking care of you while you were in the hospital! Supervising Physician Co-Signing Physician Notes chart reviewed and case d/w S Topher SLAUGHTER, as above Total Time Total Time Spent Total Time Spent (In Minutes): Greater than 30 minutes spent completing this discharge process including direct patient care, medication reconciliation, documentation, review of labs and im ages, and coordination of care. Coding Level of Care Code 26022 INP/OBS DISCH >30 MIN Diagnoses Elevated troponin R79.89 Allergic reaction T78.40XA Hypoxia R09.02 COPD (chronic obstructive pulmonary disease) J44.9 Unresponsive episode R40.4"
== END 2025-03-20 13:24 | disposition home or self-care (01) | DRG 918 ==
LOC: ED 16:49 → EDINP 21:21 → SUATTDRO 21:21 → 2N 22:45